=== PATIENT | male | born 1985 | race Caucasian/White ===

== ENCOUNTER 2017-09-29 21:43 | Emergency (ER) | payer SELFPAY ==
[2017-09-29] MEDS ORDERED: Acetaminophen 500 MG TAB ONE (22:20)
[2017-09-29 22:23] LABS: #Basophils 0.1 thou/uL (0.0-0.2); #Eosinphils 0.6 thou/uL (0.0-0.7); #Lymphocytes 3.7 thou/uL (1.20-3.40); #Monocytes 1.9 thou/uL (0.11-0.59); #Neutrophils 8.2 thou/uL (1.40-6.50); %Basophils 0.5 % (0.0-1.0); %Eosinophils 4.1 % (0.0-10.0); %Lymphocytes 25.6 % (21.0-51.0); %Monocytes 12.9 % (0.0-10.0); %Neutrophils 56.9 % (42.0-75.0); Hemoglobin 16.9 g/dL (14.0-18.0); Mean Corpuscular Hemoglobin 29.8 pg (27.0-31.0); Mean Corpuscular Volume 87.7 fl (80.0-94.0); Mean Platelet Volume 7.6 fL (7.4-10.4); Platelet Count 237 thou/uL (130-400); Red Blood Cell (RBC) Count 5.67 mill/uL (4.70-6.10); White Blood Cell (WBC) Count 14.4 thou/uL (4.8-10.8)
--- NOTE | 2017-09-29 22:33 | RAD ---
ONE VIEW CHEST: 09/29/17 HISTORY: Dyspnea. COMPARISON: None. FINDINGS: Portable upright chest: Normal cardiac silhouette. The lungs and pleural spaces are clear. No pneumothorax or osseous abnorma lities. IMPRESSION: No acute cardiopulmonary process. POS: [facility]
[2017-09-29 22:35] LABS: Bilirubin Negative (Negative); Blood, Urine Negative (Negative); Clarity CLEAR (Clear); Glucose, Urine (Dipstick) Negative (Negative); Leukocyte Negative (Negative); Nitrite Negative (Negative); Protein, Urine (Dipstick) Negative (Neg-Trace); Specific Gravity, Urine 1.006 (1.002-1.036); Urobilinogen 0.2 mg/dL (0.2-1.0); pH, Urine 6.5 (5.0-9.0)
[2017-09-29 22:43] LABS: ALT (SGPT) 20 U/L (8-55); AST (SGOT) 17 U/L (5-34); Albumin 4.7 g/dL (3.5-5.0); Alkaline Phosphatase 70 U/L (40-150); Anion Gap 14 mmol/L (10-20); BUN (Urea Nitrogen) 5 mg/dL (8.9-20.6); Calc. Creatinine Clearance 0 mL/min (70-130); Calcium 9.4 mg/dL (7.8-10.44); Carbon Dioxide 26 mmol/L (22-29); Chloride 103 mmol/L (98-107); Estimated GFR-MDRD Greater than 90; Globulin 3.3 g/dL (2.4-3.5); Glucose 95 mg/dL (70-105); Potassium 3.6 mmol/L (3.5-5.1); Sodium 139 mmol/L (136-145)
[2017-09-29] MEDS ORDERED: methylPREDNISolone Sod Succ/PF 125 MG/2 ML VIAL ONE (23:53)
== END 2017-09-30 00:50 | disposition home or self-care (01) ==
LOC: ERS 21:43
DX: J40 Bronchitis, not specified as acute or chronic (principal); Z71.6 Tobacco abuse counseling; F17.210 Nicotine dependence, cigarettes, uncomplicated
CPT/HCPCS: 71045; 80053; 81003; 83605; 85025; 87040; 93005; 94640; 96361; 96374; 96375; 99406; J0696; J2930; J7620

== ENCOUNTER 2018-04-11 11:58 | Emergency (ER) | payer SELFPAY ==
[2018-04-11] MEDS ORDERED: Fluorescein Opthalmic Strip ONE (13:10)
[2018-04-11] MEDS ORDERED: Proparacaine 0.5% Opth 15 ML BOT ONE (13:10)
== END 2018-04-11 13:28 | disposition home or self-care (01) ==
LOC: ERS 11:58
DX: S05.02XA Injury of conjunctiva and corneal abrasion without foreign body, left eye, initial encounter (principal); F32.9 Major depressive disorder, single episode, unspecified; F17.210 Nicotine dependence, cigarettes, uncomplicated; W22.8XXA Striking against or struck by other objects, initial encounter
CPT/HCPCS: 99283

== ENCOUNTER 2024-06-19 07:20 | Emergency (ER) | payer SELFPAY ==
[2024-06-19 10:29] LABS: #Basophils 0.06 10x3/uL (0.0-0.2); %Basophils 0.4 % (0.0-1.0); %Eosinophils 4.5 % (0.0-10.0); %Lymphocytes 30.9 % (21.0-51.0); %Monocytes 8.6 % (0.0-10.0); %Neutrophils 55.2 % (42.0-75.0); Hemoglobin 15.6 g/dL (14.0-18.0); Mean Corpuscular HGB CONC 33.2 g/dL (32.0-36.0); Mean Corpuscular Hemoglobin 28.5 pg (27.0-31.0); Mean Corpuscular Volume 85.9 fL (78.0-98.0); Mean Platelet Volume 9.8 fL (7.4-10.4); Platelet Count 318 10x3/uL (130-400); Red Blood Cell (RBC) Count 5.47 mill/uL (4.70-6.10)
[2024-06-19 10:47] LABS: ALT (SGPT) 20 U/L (8-55); AST (SGOT) 15 U/L (5-34); Albumin 4.3 g/dL (3.5-5.0); Alkaline Phosphatase 66 U/L (40-110); Anion Gap 12 mmol/L (10-20); BUN (Urea Nitrogen) 11 mg/dL (8.9-20.6); Bilirubin, Total 1.4 mg/dL (0.2-1.2); Calc. Creatinine Clearance 0 mL/min (70-130); Calcium 9.3 mg/dL (7.8-10.44); Carbon Dioxide 24 mmol/L (22-29); Chloride 107 mmol/L (98-107); Estimated GFR 124; Globulin 3.8 g/dL (2.4-3.5); Glucose 91 mg/dL (70-105); Potassium 4.1 mmol/L (3.5-5.1); Protein, Total 8.1 g/dL (6.0-8.3); Sodium 139 mmol/L (136-145)
[2024-06-19 11:21] LABS: Troponin I Less than 0.010 ng/mL (< 0.028)
== END 2024-06-19 11:51 | disposition home or self-care (01) ==
LOC: ERS 07:20
DX: M54.6 Pain in thoracic spine (principal); M54.50 Low back pain, unspecified
CPT/HCPCS: 36415; 80053; 84484; 85025; 93005; 99283